=== PATIENT | female | born 1975 | race Caucasian/White ===

== ENCOUNTER 2016-06-28 05:09 | Day surgery (SDC) | payer OTHER ==
[2016-06-28] MEDS ORDERED: NS 1,000 ML ONE (05:34)
[2016-06-28] MEDS ORDERED: TOPROL XL PO ONE (06:30)
[2016-06-28] MEDS ORDERED: MYLICON DROPS (DOSE) MISC ONE (07:41)
[2016-06-28] MEDS ORDERED: VERSED ONE (08:47)
[2016-06-28] MEDS ORDERED: DIPRIVAN 1% ONE ×2 (08:48→10:29)
[2016-06-28] MEDS ORDERED: FENTANYL ONE (08:48)
[2016-06-28 09:16] LABS: MANUAL DIFF NEEDED? NO
[2016-06-28 09:20] LABS: BASO% 0.2 % (0.0-0.8); EOS% 1.1 % (0.0-10.0); HEMATOCRIT 42.2 % (37.0-47.0); LYMPH# 3.92 X1000 (1.2-3.4); LYMPH% 44.7 % (20.5-51.1); MCHC 33.2 g/dL (33-37); MCV 99.5 FL (81-99); MONO# 1.36 X1000 (0.11-0.59); MONO% 15.5 % (1.7-9.3); NEUT% 38.5 % (42.2-75.2); PLT 252 X1000 (130-400); RBC 4.24 XMIL (4.2-5.4)
[2016-06-28] MEDS ORDERED: XYLOCAINE-MPF 2% ONE (09:26)
[2016-06-28] MEDS ORDERED: ZOFRAN ONE (09:26)
[2016-06-28 09:48] VITALS: BP 125/65
--- NOTE | 2016-07-01 04:38 | OPERATIVE NOTE ---
PROCEDURE DATE: 06/28/2016 REFERRING PHYSICIAN: Joel Moses MD INDICATIONS FOR PROCEDURE: 1. Melena. 2. NSAIDs use. 3. Loss of appetite. 4. Heartburn. PROCEDURE PERFORMED: Esophagogastroduodenoscopy, incomplete. CONSENT: Informed consent was obtained from the patient prior to the procedure. The risks, benefits, and alternatives were discussed. MEDICATION: The patient received monitored anesthesia care. PERFORMING PHYSICIAN: Shannon German MD. ASSISTANTS: 1. [facility] 2. Candida Ibarra RN. 3. Sridevi White CRNA. 4. Uvaldo Interiano MD (Anesthesia). COMPLICATIONS: There were no complications. ESTIMATED BLOOD LOSS: None. FINDINGS: After sedation was achieved, the upper endoscope was inserted to the gastric body. The hypopharynx appeared endoscopically normal. The tubular esophagus appeared endoscopically normal. The GE junction was present at 39 cm from the incisors. In the gastric lumen, there was a large gastric bezoar that prevented further advancement of the scope. Surrounding mucosa appeared grossly inflamed, consistent with nonerosive gastritis. Because of the presence of a large bezoar, the procedure was terminated. The scope was removed without incident. IMPRESSION: 1. Large gastric bezoar. 2. Erosive gastritis. RECOMMENDATIONS: 1. We will begin a clear liquid diet for the next 48 hours. 2. Add papaya extract 2-3 times per day to help digest the gastric bezoar. 3. We will schedule a gastric emptying study for further assessment of her gastric emptying, although the presence of the large bezoar is consistent with gastroparesis. 4. We will proceed with a colonoscopy as previously scheduled.
--- NOTE | 2016-07-01 04:42 | OPERATIVE NOTE ---
PROCEDURE DATE: 06/28/2016 REFERRING PHYSICIAN: Joel Moses MD INDICATIONS FOR PROCEDURE: 1. Loss of appetite. 2. Rectal bleeding. 3. Constipation. 4. Low back pain. PROCEDURE PERFORMED: Colonoscopy with biopsy. CONSENT: Informed consent was obtained from the patient prior to the procedure. The risks, benefits, and alternatives were discussed. MEDICATION: The patient received monitored anesthesia care. PERFORMING PHYSICIAN: Shannon German MD. ASSISTANTS: 1. [facility] 2. nguyen Alford. 3. Sridevi Fernández CRNA. 4. Uvaldo Interiano MD (Anesthesia). COMPLICATIONS: There were no complications. ESTIMATED BLOOD LOSS: Less than 2 mL. SPECIMENS REMOVED: 1. Random colon biopsy. 2. Colitis. 3. Rectal biopsy. CECAL INTUBATION TIME: Was 9 minutes. WITHDRAWAL TIME: Was 18 minutes. PREP QUALITY: Poor. FINDINGS: After the esophagogastroduodenoscopy was performed, the patient was repositioned. The colonoscope was inserted to the cecum. The ileocecal valve and appendiceal orifice appeared normal after washing. Upon withdrawal, there was an ascending colon polyp that was less than 10 mm that remains intact due to the poor bowel prep. Upon further withdrawal, the colonic mucosa appeared grossly normal, but approximately 50% of the lumen was obscured by fecal residue with liquid stool obscuring more than 50% of the lumen. Upon further withdrawal, there was rare diverticula present in the gastric lumen. Beginning at 35 cm, there were erosive changes consistent with acute colitis that began at 35 cm and extended to the rectum. There was a 5-10 mm sessile polyp at 20 cm that remains intact. In the upper rectum, there was grade 1 internal hemorrhoids. On retroflexed view, there were large external hemorrhoids. After the exam was complete, the lumen was decompressed and the scope was removed without incident. IMPRESSION: 1. Poor bowel prep. 2. Ascending colon polyp, remains intact. 3. Rare diverticulosis. 4. Acute colitis beginning at 35 cm and extending to the rectum. 5. Sessile colon polyp at 20 cm. 6. Grade 1 internal hemorrhoids. RECOMMENDATIONS: 1. Await biopsy results. 2. Changes are consistent with acute colitis, most likely ulcerative. Therefore, begin Asacol 800 mg p.o. t.i.d. 3. Begin Canasa suppository 1 per rectum at bedtime. 4. We will send stool for lactoferrin and blood for IBD serology. 5. I recommend a repeat colon and esophagogastroduodenoscopy in 12 weeks in light of the gastric bezoar found on esophagogastroduodenoscopy and severe acute colitis found on colonoscopy with poor prep. She will need removal of the remaining polyps found on colonoscopy. 6. We will have the patient return to clinic in 4 weeks to assess interval progress.
== END 2016-06-28 09:50 | disposition home or self-care (01) ==
LOC: ENDO 05:09
PROVIDERS: ATTEND Internal Medicine Gastroenterology
DX: K52.9 Noninfective gastroenteritis and colitis, unspecified (principal); K29.00 Acute gastritis without bleeding; T18.2XXA Foreign body in stomach, initial encounter; K59.00 Constipation, unspecified; D12.2 Benign neoplasm of ascending colon; K62.1 Rectal polyp; K64.4 Residual hemorrhoidal skin tags; I10 Essential (primary) hypertension
CPT/HCPCS: 83630; 85025; 86140; 86255; 86671; 87045; 87046; 87324; 87449; 88305; 88313; 89055; J2250; J2405; J3010; J7030